=== PATIENT | female | born 1990 | race African-American/Black ===

== ENCOUNTER → 2018-03-30 17:26 | Outpatient (CLI) | payer BC, SELFPAY ==
[2018-03-30 19:23] LABS: Hep C Virus Ab w/Reflex Quant NEGATIVE s/c (NEGATIVE)
[2018-04-01 14:35] LABS: HSV 2 IGG AB 4.21 index (< 0.90)
[2018-04-06 16:59] LABS: AFP, Serum 64.6 ng/mL; Calc Gestational Age 18.9; Cigarette Smoker N; Donated Egg N; Donor Egg Age NOT GIVEN; Inhibin A, Dimeric 302 pg/mL; Maternal Ethnicity AFRICAN AMERICAN; Maternal Weight 124 lbs; Number of Fetuses 1; Previous Pregnancy Down Syndro N; hCG, MoM 1.48; hCG, Serum 40.5 IU/mL
== END ==
PROVIDERS: Visit Provider Specialist
DX: Z34.02 Encounter for supervision of normal first pregnancy, second trimester (principal); Z3A.18 18 weeks gestation of pregnancy
CPT/HCPCS: 36415; 82105; 82677; 84702; 86336; 86695; 86696; 86787; 86803

== ENCOUNTER → 2018-05-08 13:50 | Outpatient (CLI) | payer BC, SELFPAY ==
--- NOTE | 2018-05-08 13:51 | DI.US.S_ITS ---
PROCEDURE: US OB >= 14 WEEKS FETUS INDICATIONS: ANATOMY OUTSIDE/PRIOR DATING DATA: Last menstrual period (LMP): 11/16/17. LMP-based estimated date of delivery (ANA): 08/23/18. First dating scan (date and location): 05/08/18. Estimated date of delivery (ANA) from first dating scan: 09/08/18. TECHNIQUE: Real-time scanning was performed of the fetus, with image documentation and biometric measurements. Endovaginal scanning: No COMPARISON: None. FINDINGS: General: A single living intrauterine gestation is present. Presentation: Vertex. Placenta: Placental position is posterior, without previa. Amniotic fluid index: 13.3 cm, normal range is 5-24 cm. heart rate: 139 beats per minute. Maternal cervical canal: 3.30 cm long. Normal lower limit is 2.5 cm. biometrics: Biparietal diameter: 22 weeks 1 day Head circumference: 21 weeks 5 days Abdominal circumference: 22 weeks 2 days Femur length: 23 weeks Estimated gestational age from initial scan: not applicable. Composite gestational age from present scan: 22 weeks 3 days Estimated weight and percentile: N./A. Measurement variability for biometric dating: +/- 7 days from 14 weeks to 15 weeks 6 days gestation, +/- 10 days from 16 weeks to 21 weeks 6 days gestation, +/- 2 weeks from 22 weeks to 27 weeks 6 days gestation, +/- 3 weeks for 28 weeks gestation or later. weight reference: 4500 g or EFW >90/95% is considered macrosomia or large for gestational age. EFW <10% is small for gestational age. EFW 5% or less is considered intra-uterine growth restriction. Anatomic survey: Neuro: Ventricles are non-dilated at less than 10 mm. Cisterna magna is normal at 3-11 mm. Cerebellum is normal in size and morphology. Nuchal skin fold: Normal at less than 6 mm between 14-21 weeks gestational age. Face: Nose and lips, facial profile are normal. Spine: No evidence for spina bifida. Heart: 4-chambered heart is present, with normal ventricular outflow tracts. Diaphragm: Diaphragm is intact. Stomach: Left-sided stomach is present. Kidneys: No hydronephrosis. Normal is less than 5 mm in 2nd trimester, less than 7 mm in 3rd trimester. Cord: 3-vessel cord has orthotopic insertion. Bladder: Normal in size. Extremities: All 4 extremities identified. IMPRESSION: 1. Single living IUP with composite gestational age of 22 weeks 3 days. 2. Normal anatomic survey. Dictated by: Richie MARCH Interpreted: Treva Ayala MD on 05/08/2018 at 16:03 Approved by: Treva Ayala M.D. on 05/08/2018 at 16:58
== END ==
PROVIDERS: Visit Provider Specialist
DX: Z34.02 Encounter for supervision of normal first pregnancy, second trimester (principal); Z3A.22 22 weeks gestation of pregnancy
CPT/HCPCS: 76811

== ENCOUNTER → 2018-06-01 12:39 | Outpatient (CLI) | payer BC, SELFPAY ==
[2018-06-01 14:04] LABS: Hematocrit 35.8 % (36-46)
[2018-06-01 14:58] LABS: GTT (PREG) 1 Hour PP 50gm Dose 84 mg/dL (76-139)
== END ==
DX: Z34.02 Encounter for supervision of normal first pregnancy, second trimester (principal)
CPT/HCPCS: 36415; 82950; 85014; 85018

== ENCOUNTER 2018-07-27 16:31 | Outpatient (CLI) | payer BC, SELFPAY ==
--- NOTE | 2018-07-27 17:03 | PM.OBTRLD ---
Visit Information Visit Information Date of evaluation: 07/27/18 Primary OB Provider: Kayla Dorman Reason for Evaluation: Yes rule out labor PFSH Social History Smoking Status: Never smoker Social History Smoking Status: Never smoker Exam Vital Signs (past 8 hours): Blood pressure 112/66, pulse of 99 Evaluation Evaluation Baseline heart rate: 130 Variability: Moderate (11-25) monitor accelerations: Present monitor decelerations: Absent Contraction Frequency (minutes): 0 Category of Tracing: I Diagnosis, Plan/Disposition Final Diagnosis (1) Premature uterine contractions causing threatened premature labor in third trimester: Current Visit: Yes Status: Acute Plan/Disposition Plan: Patient who was concerned she was having contractions but they stopped prior to arriving to the hospital and she had no contractions seen on the monitor. She was discharged home with routine precautions. Follow-up on her routine OB appointment. Call if her symptoms return. OB Disposition: home
== END 2018-07-27 17:09 | disposition home or self-care (01) ==
LOC: LABOR 16:55 → OB 07-28 14:55
PROVIDERS: Visit Provider Specialist
DX: O36.8130 Decreased fetal movements, third trimester, not applicable or unspecified (principal); Z3A.35 35 weeks gestation of pregnancy
CPT/HCPCS: 59025; G0378; G0379

== ENCOUNTER → 2018-07-30 15:12 | Outpatient (CLI) | payer BC, SELFPAY ==
[2018-07-31 14:36] LABS: Strep Grp B PCR NEG for Grp B Strep
== END ==
PROVIDERS: Visit Provider Specialist
DX: Z3A.36 36 weeks gestation of pregnancy (principal)
CPT/HCPCS: 87653

== ENCOUNTER 2018-08-28 16:09 | Outpatient (CLI) | payer BC, SELFPAY ==
--- NOTE | 2018-08-28 16:49 | PM.OBTRLD ---
Visit Information Visit Information Date of evaluation: 08/28/18 Primary OB Provider: Kayla Dorman Reason for Evaluation: Yes non-stress test non-stress test reason: other (Postdates) [facility] Social History Smoking Status: Never smoker Social History Smoking Status: Never smoker Evaluation Evaluation Baseline heart rate: 140 Variability: Moderate (11-25) monitor accelerations: Present monitor decelerations: Absent Contraction Frequency (minutes): 0 Diagnosis, Plan/Disposition Final Diagnosis (1) Postmaturity , 40-42 weeks gestation: Current Visit: Yes Status: Acute Problem details: Reactive nonstress test Plan/Disposition Plan: Patient is scheduled for induction on 09/02/2018 for post-dates OB Disposition: home
== END 2018-08-28 17:03 | disposition home or self-care (01) ==
LOC: LABOR 16:59 → OB 08-31 12:55
PROVIDERS: Visit Provider Specialist
DX: O48.0 Post-term pregnancy (principal)
CPT/HCPCS: 59025; G0378; G0379

== ENCOUNTER 2018-09-02 07:03 | Inpatient (IN) | payer BC, SELFPAY ==
[2018-09-02 08:15] LABS: Add Manual Diff / Slide Review NO; Basophils Absolute Auto 0 /uL (0-100); Basophils Percent Auto 0.6 % (0-2); Eosinophils Absolute Auto 0 /uL (0-450); Eosinophils Percent Auto 0.5 % (2-4); Hematocrit 39.4 % (36-46); Hemoglobin 13.4 g/dL (12.0-16.0); Lymphocytes Absolute Auto 1700 /uL (1100-4500); Lymphocytes Percent Auto 19.9 % (25-40); Mean Corpuscular HGB Conc 34.1 % (30-36); Mean Corpuscular Hemoglobin 31.4 PG (26-34); Mean Corpuscular Volume 92.2 fL (80-100); Monocytes Absolute Auto 700 /uL (0-900); Monocytes Percent Auto 8.9 % (3-14); Neutrophils Absolute Auto 5900 /uL (1500-7000); Neutrophils Percent Auto 70.1 % (50-75); Platelet Count 155 X10^3/uL (150-400); Red Blood Cell Count 4.28 X10^6/uL (4.0-5.2); Red Cell Distribution Width 14.2 % (11.6-14.8); White Blood Cell Count 8.4 X10^3/uL (4.5-11.0)
[2018-09-02] MEDS: LACTATED RINGERS 1,000 ML 100 ML IV ×2 (08:16→15:17)
[2018-09-02] MEDS: OXYTOCIN PREMIX 30 UNIT/500 ML PLAST..BAG IV (08:21)
[2018-09-02 08:29] VITALS: BP 121/65
--- NOTE | 2018-09-02 15:59 | PM.OBHP.1 ---
OB HPI Date/Time Date of admission: 09/02/18 Date Patient Seen: 09/02/18 Time Patient Seen: 08:00 History of Present Condition Chief complaint: observation of labor : 1 Para: 0 Estimated Date of Delivery: 08/25/18 Estimated Gestational Age (weeks): 41 Narrative: Rosaura Lynch is a 28 year old female admitted for induction of labor Indications Indication for induction OB: post dates History of Present care: initiated at week # (18), number of visits (12) and pounds weight gain (41) Dating criteria: LMP confirmed by 2nd trimester US Ultrasounds: normal mid trimester US Obstetrical complications: none Medical complications: none Preadmission Labs Blood type: B (+) positive -: Antibody screen: negative, GBS status: negative, HBsAG: negative, HIV: negative, HSV 1: positive, HSV 2: positive and RPR/VDLR: negative -: Chlamydia screen: not detected and Gonorrhea screen: not detected -: Rubella: immune and Varicella: immune HCAB: negative Quad screen: Normal 1 hr GTT: 84 Evaluation Evaluation Baseline heart rate: 135 Variability: Moderate (11-25) monitor accelerations: Present monitor decelerations: Absent Contraction Frequency (minutes): 5 Uterine Contraction Intensity: Mild Category of Tracing: I Cervical dilation (cm): 2 Cervical effacement (%): 80 station: -1 Laboratory results: Laboratory Tests 09/02/18 09/02/18 07:55 07:55 WBC 8.4 RBC 4.28 Hgb 13.4 Hct 39.4 MCV 92.2 MCH 31.4 MCHC 34.1 RDW 14.2 Plt Count 155 Neut % (Auto) 70.1 Lymph % (Auto) 19.9 L [place] % (Auto) 8.9 Eos % (Auto) 0.5 L Baso % (Auto) 0.6 Neut # (Auto) 5900 Lymph # (Auto) 1700 [place] # (Auto) 700 Eos # (Auto) 0 Baso # (Auto) 0 Blood Type B Positive Antibody Screen Negative PFSH Medical History Depression (Chronic) Social History Smoking Status: Never smoker Social History Smoking Status: Never smoker Meds Home Medications Medication Instructions Recorded Confirmed Type clindamycin HCl 300 mg capsule 300 mg PO BID #14 cap 02/25/18 Rx 1 tab PO DAILY 03/30/18 03/30/18 History vitamin,calcium,figvsxev-yztp-dommj acid tablet acyclovir 800 mg tablet 800 mg PO DAILY #30 tab 07/24/18 Rx Allergies Allergy/AdvReac Type Severity Reaction Status Date / Time No Known Drug Allergies Allergy Verified 09/02/18 08:38 Review of Systems Review of Systems Patient denies any herpes outbreaks. She has had good movement. No leakage of fluid. No signs or symptoms of preeclampsia. All systems reviewed & are unremarkable except as noted in HPI and below Exam Vital Signs (past 8 hours): Blood pressure 121/65, pulse of 89, temperature 99.2?- 09/02/18 08:29 Blood Pressure 121/65 Narrative Exam Narrative: HEENT exam within normal limits. Lungs are clear to auscultation percussion. Heart is regular rate and rhythm no S3-S4 or murmurs. Infant is vertex. Extremities without edema and nontender. Objective Labs Result Diagrams: 09/02/18 07:55 Labs: Laboratory Results - last 24 hr 09/02/18 09/02/18 07:55 07:55 WBC 8.4 RBC 4.28 Hgb 13.4 Hct 39.4 MCV 92.2 MCH 31.4 MCHC 34.1 RDW 14.2 Plt Count 155 Neut % (Auto) 70.1 Lymph % (Auto) 19.9 L [place] % (Auto) 8.9 Eos % (Auto) 0.5 L Baso % (Auto) 0.6 Neut # (Auto) 5900 Lymph # (Auto) 1700 [place] # (Auto) 700 Eos # (Auto) 0 Baso # (Auto) 0 Blood Type B Positive Antibody Screen Negative
--- NOTE | 2018-09-02 18:32 | PM.OBPRVD ---
Events: Labor Induction ( postdates) Delivery date: 09/02/18 Intrapartal events: None Induction method: per pitocin protocol Delivery monitor: external FHT and external uterine Route of delivery: L&D Laceration Description: None Estimated blood loss (mL): 250 Anesthesia type: Epidural Narrative: Patient arrived on Labor and delivery for induction for postdates. She received IV Pitocin. She received a epidural for pain control. heart tones category 1 to category 2 throughout labor with occasional variable decelerations. Patient delivered spontaneously, over an intact perineum a viable male . there was a nuchal cord that was released. The was placed on maternal abdomen. After the cord stopped pulsating the cord was clamped, cut, and cord bloods obtained. the placenta delivered spontaneously, intact, with 3 vessels. There were no cervical, vaginal, or perineal tears. Estimated blood loss 250 cc. Baby 1: gender: Male Presentation: vertex position: Right Occiput Anterior Placenta delivery description: Spontaneous cord vessel description: 3 Vessels score (1 min): 9 score (5 min): 9
[2018-09-02] MEDS: IBUPROFEN 600 MG TABLET PO (21:45)
[2018-09-02] MEDS: DERMOPLAST SPRAY 20% 60 ML 1 SPRAY TOP (22:29)
[2018-09-03 05:21] LABS: Add Manual Diff / Slide Review NO; Basophils Absolute Auto 100 /uL (0-100); Basophils Percent Auto 0.7 % (0-2); Eosinophils Absolute Auto 100 /uL (0-450); Eosinophils Percent Auto 0.5 % (2-4); Hematocrit 35.5 % (36-46); Lymphocytes Absolute Auto 1800 /uL (1100-4500); Mean Corpuscular HGB Conc 33.7 % (30-36); Mean Corpuscular Hemoglobin 30.8 PG (26-34); Mean Corpuscular Volume 91.3 fL (80-100); Monocytes Absolute Auto 1800 /uL (0-900); Neutrophils Absolute Auto 11300 /uL (1500-7000); Neutrophils Percent Auto 74.8 % (50-75); Platelet Count 144 X10^3/uL (150-400); Red Blood Cell Count 3.88 X10^6/uL (4.0-5.2); Red Cell Distribution Width 14.2 % (11.6-14.8); White Blood Cell Count 15.1 X10^3/uL (4.5-11.0)
[2018-09-03] MEDS: IBUPROFEN 600 MG TABLET PO ×3 (06:45→23:24)
[2018-09-03] MEDS: HYDROCODONE/ACET 5/325 TABLET 2 TAB PO (08:32)
[2018-09-03] MEDS: DOCUSATE 250 MG CAPSULE PO (08:33)
--- NOTE | 2018-09-03 13:39 | P.PNOB_ITS ---
Subjective - OB Patient comments: pain well controlled baby status: doing well [place] feeding status: exclusively breast feeding Narrative: Patient denies any signs or symptoms of preeclampsia. She is having mild cramping. She has mild discomfort in her vulvar area. She is working on improving breast-feeding. Date Patient Seen: 09/03/18 Time Patient Seen: 08:00 Interval history: exam Exam Vital Signs (past 8 hours): Blood pressure 112/68, pulse 75, temperature 98.9? Narrative Exam Narrative: Abdomen is soft, nontender. Uterus is firm, at U, nontender. Perineum is quite swollen but no increase in hematoma size. Mild lochia. Extremities without edema and nontender. Objective Labs Result Diagrams: 09/03/18 05:03 Labs: Laboratory Results - last 24 hr 09/03/18 05:03 WBC 15.1 H D RBC 3.88 L Hgb 12.0 Hct 35.5 L MCV 91.3 MCH 30.8 MCHC 33.7 RDW 14.2 Plt Count 144 L Neut % (Auto) 74.8 Lymph % (Auto) 12.0 L [place] % (Auto) 12.0 Eos % (Auto) 0.5 L Baso % (Auto) 0.7 Neut # (Auto) 84039 H Lymph # (Auto) 1800 [place] # (Auto) 1800 H Eos # (Auto) 100 Baso # (Auto) 100 Assessment & Plan (1) Vaginal delivery: Problem details: Normal exam. Routine care. Anticipate home in a.m. Status: Acute Current Visit: Yes Time Spent With Patient Total time spent is greater than 50% in coordination of care (as documented) at patient's floor/unit and/or counseling patient: less than 15 minutes
[2018-09-03 23:24] VITALS: TEMP 36.8
--- NOTE | 2018-09-04 07:40 | PM.OBDS.1 ---
Discharge Providers Date of admission: 09/02/18 07:03 Discharge Date: 09/04/18 Consults: 09/02/18 08:07 Consult to Anesthesiology Urgent Comment: Consulting Provider: Anesthesiologist Reason for consultation: Epidural Has provider been notified: No 09/02/18 21:38 Consult to Contact [employer] Routine Comment: Discharge provider: Kayla Dorman MD Summary Date Patient Seen: 09/04/18 Time Patient Seen: 07:40 Procedures: epidural, pitocin induction, vaginal delivery Hospital Course: Patient arrived on Labor and delivery for Pitocin induction for postdates. She received an epidural for catheter for pain control. She had a spontaneous vaginal delivery without tears. She is breast-feeding without difficulty. No signs or symptoms of preeclampsia. She has discomfort from swelling in her vaginal and vulvar area but otherwise doing well. Blood pressure 103/61, pulse of 89, temperature 98.2? patient is B positive and rubella immune Patient's abdomen is soft, nontender. Uterus is firm, at U, nontender. The swelling in the vulvar area is decreasing but still present. Mild lochia. Extremities without edema and nontender. Peripartum Data Infant Delivery Method: Natural Vaginal Laceration description: None Procedures: Pitocin induction, vaginal delivery, epidural catheter complications: none 1: Gender: Male Disposition of : home Discharge Diagnosis (1) Vaginal delivery: Status: Acute Problem Details: Normal exam. Routine care. Status at Discharge Cognitive/behavioral status at discharge: at baseline, oriented Overall status at discharge: patient is progressing back to baseline Time Spent with Patient Total time spent providing and/or coordinating discharge services: Less than 30 minutes Objective Labs Result Diagrams: 09/03/18 05:03 Discharge Plan Discharge Plan Patient Disposition: Home Discharge Med Rec/Prescriptions Prescriptions: New hydrocodone-acetaminophen 5-325 mg Tablet 2 tab PO Q4HR PRN (Reason: Pain, Severe (7-10)) Qty: 20 RF: 0 ibuprofen 600 mg Tablet 600 mg PO Q6HR PRN (Reason: Pain, Mild (1-3)) Qty: 30 RF: 0 docusate sodium 250 mg Capsule 250 mg PO DAILY Qty: 10 RF: 0 Continued prenat.vits,javier,kqt-oraq-faqka [ Vitamin] tablet 1 tab PO DAILY RF: 0 Discontinued acyclovir 800 mg tablet 800 mg PO DAILY Qty: 30 RF: 0 clindamycin HCl 300 mg capsule 300 mg PO BID Qty: 14 RF: 0 Follow up/Referrals: Kayla Dorman MD [Physician] - 1 Month Provider Discharge Instructions Diet: Regular Activity: nothing in vagina for 4 weeks Discharge Data Attending Provider: Kayla Dorman Admit Date/Time: 09/02/18 07:03
[2018-09-04] MEDS: IBUPROFEN 600 MG TABLET PO (10:19)
[2018-09-04] MEDS: DOCUSATE 250 MG CAPSULE PO (10:21)
[2018-09-04 13:14] VITALS: BP 120/70; PULSE 81; RESP 16; TEMP 36.8
== END 2018-09-04 15:24 | disposition home or self-care (01) | DRG 807 ==
PROVIDERS: Admitting Provider Specialist; Visit Provider Specialist
DX: O48.0 Post-term pregnancy (principal); Z37.0 Single live birth; Z3A.41 41 weeks gestation of pregnancy; O69.81X0 Labor and delivery complicated by cord around neck, without compression, not applicable or unspecified
CPT/HCPCS: 01967; 36415; 59050; 59400; 85025; 86850; 86900; 86901; G0379; J2590

== ENCOUNTER → 2019-11-05 19:56 | Outpatient (ROUT) | payer BC, SELFPAY ==
[2019-11-05 21:33] LABS: Urine N gonorrhoeae NOT DETECTED
[2019-11-05 21:44] LABS: Urine Chlamydia NOT DETECTED
== END ==
PROVIDERS: Visit Provider Specialist
DX: Z34.82 Encounter for supervision of other normal pregnancy, second trimester (principal)
CPT/HCPCS: 87491; 87591

== ENCOUNTER → 2019-12-23 12:12 | Outpatient (CLI) | payer BC, SELFPAY ==
--- NOTE | 2019-12-23 | DI.US.S_ITS ---
PROCEDURE: US OB >= 14 WEEKS FETUS INDICATIONS: ANATOMY OUTSIDE/PRIOR DATING DATA: First dating scan (date and location): 11/05/19. Estimated date of delivery (ANA) from first dating scan: 04/25/20. TECHNIQUE: Real-time scanning was performed of the fetus, with image documentation and biometric measurements. Endovaginal scanning: No COMPARISON: [facility], , OB <= 14 WEEKS FETUS, 11/05/2019, 15:50. [facility], OB >= 14 WEEKS FETUS, 08/28/2018, 15:49. FINDINGS: General: A single living intrauterine gestation is present. Presentation: Vertex. Placenta: Placental position is anterior, without previa. Amniotic fluid index: 18.1 cm, normal range is 5-24 cm. heart rate: 139 beats per minute. Maternal cervical canal: 3.3 cm long. Normal lower limit is 2.5 cm. biometrics: Biparietal diameter: 22 weeks Head circumference: 21 weeks 5 days Abdominal circumference: 22 weeks 4 days Femur length: 23 weeks Estimated gestational age from initial scan: 22 weeks 2 days Composite gestational age from present scan: 22 weeks 2 days Estimated weight and percentile: 516 g; 59 percentile Measurement variability for biometric dating: +/- 7 days from 14 weeks to 15 weeks 6 days gestation, +/- 10 days from 16 weeks to 21 weeks 6 days gestation, +/- 2 weeks from 22 weeks to 27 weeks 6 days gestation, +/- 3 weeks for 28 weeks gestation or later. weight reference: 4500 g or EFW >90/95% is considered macrosomia or large for gestational age. EFW <10% is small for gestational age. EFW 5% or less is considered intra-uterine growth restriction. Anatomic survey: Neuro: Ventricles are non-dilated at less than 10 mm. Cisterna magna is normal at 3-11 mm. Cerebellum is normal in size and morphology. Nuchal skin fold: Normal at less than 6 mm between 14-21 weeks gestational age. Face: Nose and lips, facial profile are normal. Spine: No evidence for spina bifida. Heart: 4-chambered heart is present, with normal ventricular outflow tracts. Diaphragm: Diaphragm is intact. Stomach: Left-sided stomach is present. Kidneys: No hydronephrosis. Normal is less than 5 mm in 2nd trimester, less than 7 mm in 3rd trimester. Cord: 3-vessel cord has orthotopic insertion. Bladder: Normal in size. Extremities: All 4 extremities identified. IMPRESSION: 1. Single living IUP redemonstrated and interval growth is normal. 2. Normal anatomic survey. Dictated by: Richie Dejesus [facility] Interpreted: Winston Morton MD on 12/23/2019 at 13:52 Approved by: Winston Morton M.D. on 12/23/2019 at 17:45
== END ==
PROVIDERS: Referring Provider Midwife; Visit Provider Midwife
DX: Z36.89 Encounter for other specified antenatal screening (principal); Z3A.22 22 weeks gestation of pregnancy
CPT/HCPCS: 76811

== ENCOUNTER → 2022-04-27 11:42 | Outpatient (CLI) | payer OTHER, SELFPAY ==
[2022-04-27 12:33] LABS: Appearance Urine UA CLOUDY; Bilirubin Urine UA NEGATIVE (NEGATIVE); Color Urine UA RED; Glucose Urine UA NEGATIVE (Negative); Ketones Urine UA NEGATIVE (NEGATIVE); Leukocyte Esterase Urine UA 1+ (NEGATIVE); Nitrite Urine UA NEGATIVE (Negative); Occult Blood Urine UA 3+ (Negative); Protein Urine UA 1+ (Negative); Urobilinogen Urine UA 0.2 E.U./dL (0.2)
[2022-04-27 12:44] LABS: Bacteria Urine Occasional (0-1); Culture Indicated Urine Specimen Cultured; RBC Urine >100/HPF (0-5/HPF); Squamous Epithelial Cell Urine 1-5 /HPF (0-5/HPF); WBC Urine 1-5/HPF (0-5/HPF)
== END ==
PROVIDERS: Referring Provider Physician Assistant Medical; Visit Provider Physician Assistant Medical
DX: N39.0 Urinary tract infection, site not specified (principal); R82.90 Unspecified abnormal findings in urine
CPT/HCPCS: 81001; 87086

== ENCOUNTER → 2022-04-29 10:19 | Outpatient (CLI) | payer OTHER, SELFPAY ==
[2022-04-29 18:19] LABS: Hepatitis B Surface Antigen NEGATIVE s/c (NEGATIVE)
[2022-04-29 18:50] LABS: HIV 1 & 2 Ab/Ag 4th Gen Combo NEGATIVE (NEGATIVE); Hep C Virus Ab w/Reflex Quant NEGATIVE s/c (NEGATIVE)
[2022-04-30 04:09] LABS: Candida species Negative (Negative); Gardnerella vaginalis Positive (Negative); Trichomoas vaginalis Positive (Negative)
[2022-04-30 10:17] LABS: RPR Screen Non Reactive (Non Reactive)
== END ==
PROVIDERS: PCP Physician Assistant Medical; Referring Provider Physician Assistant Medical; Visit Provider Physician Assistant Medical
DX: Z11.3 Encounter for screening for infections with a predominantly sexual mode of transmission (principal); N89.8 Other specified noninflammatory disorders of vagina
CPT/HCPCS: 36415; 86592; 86803; 87340; 87389; 87480; 87510; 87660

== ENCOUNTER → 2022-06-05 10:34 | Outpatient (CLI) | payer OTHER, SELFPAY ==
[2022-06-06 14:40] LABS: Candida species Negative (Negative); Gardnerella vaginalis Positive (Negative); Trichomoas vaginalis Negative (Negative)
== END ==
PROVIDERS: PCP Physician Assistant Medical; Visit Provider Obstetrics & Gynecology
DX: A59.9 Trichomoniasis, unspecified (principal)
CPT/HCPCS: 87480; 87510; 87660

== ENCOUNTER → 2022-07-01 06:54 | Outpatient (CLI) | payer OTHER, SELFPAY ==
--- NOTE | 2022-07-01 06:56 | DI.US.S_ITS ---
PROCEDURE: US PELVIC COMPLETE INDICATIONS: CHECK IUD PLACEMENT TECHNIQUE: Real-time scanning was performed of the pelvic organs, with image documentation. Additional endovaginal scanning was necessary due to incomplete visualization of the adnexal and endometrial structures by transabdominal scanning. COMPARISON: [facility], US, PELVIC COMPLETE, 05/16/2017, 11:08. FINDINGS: Uterus: Uterus is anteverted and normal in size at 8.6 x 4.3 x 5.5 cm. The myometrium is homogeneous. The endometrium measures 7.7 mm combined thickness. Intrauterine device is seen in expected position within the endometrial canal. Ovaries: The right ovary measures 3.6 x 3.5 x 2.3 cm, with a calculated ovarian volume of 15 cc. The left ovary measures 3.6 x 1.9 x 2.9 cm, with a calculated ovarian volume of 10.2 cc. The ovaries have a normal sonographic appearance. Greater than 12 small follicles can be seen in each ovary. No adnexal masses are seen. Other: No pathologic free abdominal or pelvic fluid. IMPRESSION: 1. Intrauterine device is seen in expected position. 2. Mildly enlarged ovaries with multiple small follicles can be seen in the setting of polycystic ovarian syndrome. Recommend clinical correlation. We strive to produce accurate, complete, and clear reports of imaging services. To assist us in improving patient care, this report was composed using standard report templates and voice recognition software. Therefore, it may contain abnormal punctuation, insertions and/or omissions. Occasional wrong-word or sound-alike substitutions may occur. Though we review the report and make efforts to correct it, we do recommend that the report be read carefully in proper context to recognize any text inaccuracies. Approved by: Hipolito Zimmerman M.D. on 07/01/2022 at 9:01
== END ==
PROVIDERS: PCP Physician Assistant Medical; Referring Provider Physician Assistant Medical; Visit Provider Physician Assistant Medical
DX: N93.9 Abnormal uterine and vaginal bleeding, unspecified (principal); R10.2 Pelvic and perineal pain; Z30.431 Encounter for routine checking of intrauterine contraceptive device
CPT/HCPCS: 76830; 76856

== ENCOUNTER → 2024-03-05 16:32 | Outpatient (CLI) | payer SELFPAY ==
[2024-03-06 14:47] LABS: Strep Grp B PCR NEG for Grp B Strep
== END ==
PROVIDERS: Visit Provider Obstetrics & Gynecology
DX: Z36.85 Encounter for antenatal screening for Streptococcus B (principal)
CPT/HCPCS: 87653

== ENCOUNTER → 2024-03-22 07:50 | Outpatient (CLI) | payer OTHER, SELFPAY ==
--- NOTE | 2024-03-22 07:51 | DI.US.S_ITS ---
PROCEDURE: US OB LIMITED INDICATIONS: Late transfer, limited care, assess growth OUTSIDE/PRIOR DATING DATA: The calculations are made using the previously established ANA of 04/01/2024. TECHNIQUE: Real-time scanning was performed of the fetus, with image documentation and biometric measurements. Endovaginal scanning: Not performed COMPARISON: None. FINDINGS: General: A single living intrauterine gestation is present. Presentation: Vertex. Placenta: Placental position is anterior , without previa. Amniotic fluid index: 5.2 cm, normal range is 5-24 cm. Single deepest vertical pocket is 2.9 cm. heart rate: 155 beats per minute. Maternal cervical canal: Not well visualized. biometrics: Biparietal diameter: 8.6 cm, 34 weeks 5 days Head circumference: 31.1 cm, 34 weeks 5 days Abdominal circumference: 35.1 cm, 39 weeks 0 days Femur length: 7.0 cm, 35 weeks 6 days Clinically estimated gestational age: 38 weeks 4 days Composite gestational age from present scan: 36 weeks 1 day Estimated weight and percentile: 3162 g, 33rd percentile Other: Not applicable. IMPRESSION: Single living intrauterine at 33 weeks 4 days, ANA of 04/01/2024. Estimated weight of 3162 g, 33rd percentile. JAQUELIN of 5.2 cm, lower limits of normal. We strive to produce accurate, complete, and clear reports of imaging services. To assist us in improving patient care, this report was composed using standard report templates and voice recognition software. Therefore, it may contain abnormal punctuation, insertions and/or omissions. Occasional wrong-word or sound-alike substitutions may occur. Though we review the report and make efforts to correct it, we do recommend that the report be read carefully in proper context to recognize any text inaccuracies. Dictated by: aNkul Cerda M.D. on 03/22/2024 at 15:49 Approved by: Nakul Cerda M.D. on 03/22/2024 at 15:51
== END ==
PROVIDERS: Referring Provider Obstetrics & Gynecology; Visit Provider Obstetrics & Gynecology
DX: O09.33 Supervision of pregnancy with insufficient antenatal care, third trimester (principal); Z3A.38 38 weeks gestation of pregnancy
CPT/HCPCS: 76815

== ENCOUNTER 2024-03-31 10:20 | Observation (INO) | payer OTHER, SELFPAY | END 2024-03-31 11:06 | disposition home or self-care (01) | PROVIDERS: Admitting Provider Obstetrics & Gynecology; Referring Provider Obstetrics & Gynecology; Visit Provider Obstetrics & Gynecology | DX: Z34.83 Encounter for supervision of other normal pregnancy, third trimester (principal); Z3A.39 39 weeks gestation of pregnancy | CPT/HCPCS: 59025; G0378; G0379 ==

== ENCOUNTER 2024-04-07 11:16 | Outpatient (CLI) | payer OTHER, SELFPAY | END 2024-04-07 12:04 | disposition home or self-care (01) | LOC: LABOR 14:20 → OB 04-08 09:59 | PROVIDERS: Referring Provider Obstetrics & Gynecology; Visit Provider Obstetrics & Gynecology | DX: O48.0 Post-term pregnancy (principal); Z3A.40 40 weeks gestation of pregnancy | CPT/HCPCS: 59025; 76815; G0378; G0379 ==

== ENCOUNTER 2024-04-08 19:31 | Inpatient (IN) | payer OTHER, SELFPAY ==
[2024-04-08 20:20] VITALS: BP 111/58
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
[2024-04-08 21:31] LABS: Add Manual Diff / Slide Review NO; Basophils Absolute Auto 0 /uL (0-100); Basophils Percent Auto 0.5 % (0-2); Eosinophils Absolute Auto 100 /uL (0-450); Eosinophils Percent Auto 1.2 % (2-4); Hematocrit 27.9 % (36-46); Hemoglobin 8.9 g/dL (12.0-16.0); Lymphocytes Absolute Auto 1500 /uL (1100-4500); Lymphocytes Percent Auto 17.1 % (25-40); Mean Corpuscular Hemoglobin 25.6 PG (26-34); Mean Corpuscular Volume 80.2 fL (80-100); Monocytes Absolute Auto 700 /uL (0-900); Monocytes Percent Auto 8.1 % (3-14); Neutrophils Absolute Auto 6300 /uL (1500-7000); Neutrophils Percent Auto 73.1 % (50-75); Platelet Count 197 X10^3/uL (150-400); Red Blood Cell Count 3.48 X10^6/uL (4.0-5.2); Red Cell Distribution Width 18.8 % (11.6-14.8); White Blood Cell Count 8.6 X10^3/uL (4.5-11.0)
[2024-04-08] MEDS: miSOPROStoL 25 MCG TABLET 50 MCG PO (22:30)
[2024-04-09] MEDS: miSOPROStoL 25 MCG TABLET 50 MCG PO ×2 (02:30→06:31)
[2024-04-09] MEDS: LACTATED RINGERS 1,000 ML 100 ML IV (11:00)
[2024-04-09] MEDS: OXYTOCIN PREMIX 30 UNIT/500 ML PLAST..BAG 999 UNIT IV (11:16)
--- NOTE | 2024-04-09 11:40 | P.PCNOB_ITS ---
Events: Labor Induction Labor & Delivery Delivery date: 04/09/24 Intrapartal Events: None Cervical ripening method: per misoprostal protocol Induction method: other (Labor stimulated misoprostol ripening) Delivery monitor: external FHT and external uterine Route of delivery: Episiotomy description: None L&D Laceration Description: None Estimated blood loss (mL): 200 Anesthesia Type: None Complications: None Narrative: Following brief 2nd stage, the patient delivered spontaneously intact a vigorous and viable female infant in the occiput position. Loose nuchal cord was noted. No shoulder dystocia was encountered. Skin to skin contact initiated delivery delayed cord clamping performed. Once the umbilical cord was doubly clamped cut cord blood sample was obtained for routine studies. The placenta was easily delivered with gentle cord traction and suprapubic countertraction. Inspection placenta showed placenta itself to be intact with a central cord inse rtion and three-vessel cord. Immediately upon delivery placenta, intravenous Pitocin was initiated with prompt reduction in bleeding. Inspection of the perineum showed no lacerations or abrasions. Sponge, instrument, and needle count was correct delivery which was well tolerated by both mother and infant. Chilmark Baby 1: Infant gender: Female Presentation: vertex Position: Left Occiput Anterior Placenta delivery description: Spontaneous Cord Vessel Description: 3 Vessels and Nuchal Cord (Loose, x1) score (1 min): 9 score (5 min): 9 weight: 7 lb 2.041 oz Plan for aftercare: Routine care
[2024-04-09] MEDS: ACETAMINOPHEN 325 MG TABLET 650 MG PO ×2 (13:31→19:16)
[2024-04-09] MEDS: WITCH HAZEL/GLYCERIN PADS 1 EACH TOP (13:31)
[2024-04-09] MEDS: LANOLIN OINT 7 GM 1 APPLIC TOP (13:31)
[2024-04-09] MEDS: DERMOPLAST SPRAY 20% 60 ML 1 SPRAY TOP (13:31)
[2024-04-09] MEDS: IBUPROFEN 600 MG TABLET PO ×2 (13:32→19:16)
[2024-04-09] MEDS: ACYCLOVIR 400 MG TABLET PO (20:40)
[2024-04-09] MEDS: OXYCODONE IR 5 MG TABLET PO (21:51)
[2024-04-10 07:38] LABS: Add Manual Diff / Slide Review NO; Basophils Absolute Auto 0 /uL (0-100); Basophils Percent Auto 0.2 % (0-2); Eosinophils Absolute Auto 100 /uL (0-450); Eosinophils Percent Auto 1.1 % (2-4); Hematocrit 29.1 % (36-46); Hemoglobin 9.4 g/dL (12.0-16.0); Lymphocytes Absolute Auto 1700 /uL (1100-4500); Lymphocytes Percent Auto 13.8 % (25-40); Mean Corpuscular HGB Conc 32.2 % (30-36); Mean Corpuscular Hemoglobin 25.7 PG (26-34); Mean Corpuscular Volume 79.9 fL (80-100); Monocytes Absolute Auto 1100 /uL (0-900); Monocytes Percent Auto 9.2 % (3-14); Neutrophils Absolute Auto 9200 /uL (1500-7000); Neutrophils Percent Auto 75.7 % (50-75); Platelet Count 203 X10^3/uL (150-400); Red Blood Cell Count 3.64 X10^6/uL (4.0-5.2); Red Cell Distribution Width 18.2 % (11.6-14.8); White Blood Cell Count 12.1 X10^3/uL (4.5-11.0)
[2024-04-10] MEDS: ACYCLOVIR 400 MG TABLET PO (09:11)
[2024-04-10 09:14] VITALS: BP 111/58; PULSE 94; TEMP 36.1
--- NOTE | 2024-04-10 09:18 | P.DS_ITS ---
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 Following delivery both mother and baby have done extremely well with the mother experiencing prompt return of bowel and bladder function, she is ambulating independently, tolerating a regular diet, and her pain is well controlled with oral pain medications. She will be discharged at this time to home in an afebrile normotensive condition after counseling regarding precautionary symptoms, limitations activity, medications, plans for follow-up which will be in 6 weeks. Medications at discharge will be resumption of all preadmission medications including acyclovir t.i.d. for the next 6 weeks. Peripartum Data Delivery Method: Natural Vaginal Laceration Description: None Episiotomy description: None Procedures: Spontaneous vaginal delivery complications: none Bernie 1: Gender: Female Disposition of : home Status at Discharge Cognitive/behavioral status at discharge: oriented Functional status at discharge: independent ambulation Overall status at discharge: patient is progressing back to baseline Time Spent with Patient Time attestation: Total time spent providing and/or coordinating discharge services: Time spent: Less than 30 minutes Objective Labs 04/10/24 07:21 Labs: Laboratory Results - last 24 hr 04/10/24 07:21 WBC 12.1 H RBC 3.64 L Hgb 9.4 L Hct 29.1 L MCV 79.9 L MCH 25.7 L MCHC 32.2 RDW 18.2 H Plt Count 203 Neut % (Auto) 75.7 H Lymph % (Auto) 13.8 L [place] % (Auto) 9.2 Eos % (Auto) 1.1 L Baso % (Auto) 0.2 Neut # (Auto) 9200 H Lymph # (Auto) 1700 [place] # (Auto) 1100 H Eos # (Auto) 100 Baso # (Auto) 0 Exam Vital Signs (past 8 hours): - 04/10/24 09:14 Temperature 97.0 F L Pulse Rate 94 H Blood Pressure 111/58 L Const General: cooperative and comfortable Nutritional Appearance: average body habitus Orientation: alert and oriented x3 HENMT Head: normal to inspection, atraumatic and abrasion Ears: hearing grossly normal bilaterally Face and sinus: face symmetric Eyes General: appearance normal, both eyes and all related structures Conjunctivae: conjunctivae normal Sclera: sclerae normal EOM: EOM intact bilaterally Neck Neck: normal visual inspection Resp Effort & Inspection: normal respiratory effort and able to speak in complete sentences GI Inspection: normal to inspection Palpation: soft and no hepatosplenomegaly External Female Exam: other (No significant bleeding noted) Extrem General: no calf tenderness Psych Appearance: grossly normal Mental Status: mental status grossly normal Speech and Movement: speech and movement normal Mood: congruent mood Affect: normal affect Attitude: cooperative Thought Process: normal Thought Content: normal Judgment: judgment good Discharge Plan Discharge Plan Patient Disposition: Home Provider Discharge Comment: Please review the written instructions you received at the time you were discharged from the hospital. Your follow-up appointment will be scheduled for 6 weeks after delivery and I look forward to seeing you then. If however in the meanwhile you have any questions, concerns, or issues, please contact me either by the office phone at [phone], or via the patient portal. Discharge orders & Medications Prescriptions: Continued acyclovir 400 mg tablet 400 mg PO TID Qty: 90 2RF Nature's Truth PO Follow up/Referrals: Miscellaneous,MD Jaimie [Primary Care Provider] - Eddie Moore MD [Physician] - (Please follow up w/ Dr. Moore for your 6 week follow up appointment on Friday05/19/24 @1:30pm. Please check in 1:15pm!) Discharge Health Status Multidrug resistant organism: No MDRO Diet/Activity/Treatments Activity: As tolerated Other treatments: Counter Tylenol and/or ibuprofen may be for pain relief. [id number] stool softeners and/or MiraLax may be used as needed for constipation. Skin/Wound/Dressing Care Report to your healthcare provider any signs of infection, such as:: chills, fever, increased pain and unusual drainage Dressing: N/A Visit Report/Discharge Packet Instructions: DI for Labor and Delivery, Vaginal , DI for and Nipple Soreness Discharge Data Primary Care Provider: Miscellaneous,Doctor
[2024-04-10 09:45] VITALS: BP 118/69; PULSE 77; RESP 16; TEMP 36.5
== END 2024-04-10 12:15 | disposition home or self-care (01) | DRG 806 ==
PROVIDERS: Admitting Provider Obstetrics & Gynecology; Referring Provider Obstetrics & Gynecology; Visit Provider Obstetrics & Gynecology
DX: O48.0 Post-term pregnancy (principal); O98.32 Other infections with a predominantly sexual mode of transmission complicating childbirth; Z37.0 Single live birth; Z3A.41 41 weeks gestation of pregnancy; Z67.20 Type B blood, Rh positive; A60.00 Herpesviral infection of urogenital system, unspecified
CPT/HCPCS: 36415; 59050; 59200; 85025; 86850; 86900; 86901; G0379; J2590

== ENCOUNTER → 2024-05-19 13:49 | Outpatient (CLI) | payer OTHER, SELFPAY | PROVIDERS: Visit Provider Obstetrics & Gynecology | DX: R30.0 Dysuria (principal) | CPT/HCPCS: 87086 ==

== ENCOUNTER → 2024-05-19 14:06 | Outpatient (CLI) | payer OTHER, SELFPAY ==
[2024-05-19 14:36] LABS: Add Manual Diff / Slide Review NO; Basophils Absolute Auto 0 /uL (0-100); Basophils Percent Auto 0.7 % (0-2); Eosinophils Absolute Auto 100 /uL (0-450); Eosinophils Percent Auto 2.5 % (2-4); Hematocrit 38.8 % (36-46); Hemoglobin 12.4 g/dL (12.0-16.0); Lymphocytes Absolute Auto 2600 /uL (1100-4500); Lymphocytes Percent Auto 45.7 % (25-40); Mean Corpuscular HGB Conc 31.9 % (30-36); Mean Corpuscular Hemoglobin 25.4 PG (26-34); Mean Corpuscular Volume 79.6 fL (80-100); Monocytes Absolute Auto 600 /uL (0-900); Monocytes Percent Auto 9.9 % (3-14); Neutrophils Absolute Auto 2300 /uL (1500-7000); Neutrophils Percent Auto 41.2 % (50-75); Platelet Count 181 X10^3/uL (150-400); Red Blood Cell Count 4.87 X10^6/uL (4.0-5.2); Red Cell Distribution Width 19.3 % (11.6-14.8); White Blood Cell Count 5.7 X10^3/uL (4.5-11.0)
[2024-05-19 14:57] LABS: Alanine Aminotransferase 15 IU/L (<35); Albumin 4.7 g/dL (3.5-5.0); Albumin Globulin Ratio 1.2 (1.0-2.8); Alkaline Phosphatase 81 U/L (38-126); Aspartate Aminotransferase 26 IU/L (14-36); BUN Creatinine Ratio 15.7 (6-22); Bilirubin Total 0.4 mg/dL (0.2-1.3); Blood Urea Nitrogen 14 mg/dL (7-17); Calcium 9.7 mg/dL (8.4-10.2); Carbon Dioxide 27 mmol/L (22-32); Chloride 103 mmol/L (98-107); Estimated Glomerular Filt Rate > 60 mL/min (>60); Globulin 3.9 g/dL (1.7-4.1); Glucose 89 mg/dL (70-100); HEMOLYSIS < 15 (0-50); Sodium 137 mmol/L (137-145); Total Protein 8.6 g/dL (6.3-8.2)
[2024-05-19 15:26] LABS: TSH w/ Reflex to FT4 1.32 uIU/mL (0.47-4.68)
== END ==
PROVIDERS: Referring Provider Obstetrics & Gynecology; Visit Provider Obstetrics & Gynecology
DX: R53.83 Other fatigue (principal)
CPT/HCPCS: 36415; 80053; 84443; 85025